=== PATIENT | female | born 1980 | race Caucasian/White ===

== ENCOUNTER 2021-01-14 19:58 | Emergency (ER) | payer SELFPAY ==
[~2021-01-14] VITALS: Ht 165.1 cm; Wt 63.5 kg
[2021-01-14 20:01] VITALS: BP 149/89
--- NOTE | 2021-01-14 20:08 | NUR ---
PT AMBULATED TO BED 05.
--- NOTE | 2021-01-14 20:22 | NUR ---
CT AT BEDSIDE.
--- NOTE | 2021-01-14 20:31 | NUR ---
PT BROUGHT BACK FROM CT VIA W/C.
[2021-01-14] MEDS ORDERED: ALTEPLASE 100 MG VIAL IV ONE (21:20)
--- NOTE | 2021-01-14 21:46 | NUR ---
Meli barksdale in ED - 01/14/21 at 2231 by [email or web address] RAD AT BEDSIDE.
--- NOTE | 2021-01-14 21:47 | NUR ---
LICHA AT [facility].
[2021-01-14 22:08] LABS: BASOPHILS % (AUTO) 0.5 % (0.0-2.0); EOSINOPHILS # (AUTO) 0.1 K/uL (0-0.4); HEMATOCRIT 28.9 % (36-48); HEMOGLOBIN 8.9 g/dL (12.0-16.0); LYMPHOCYTES # (AUTO) 1.7 K/uL (2.5-16.5); LYMPHOCYTES % (AUTO) 26.7 % (20.5-51.1); MEAN CORPUSCULAR HEMOGLOBIN 20 pg (27-31); MEAN CORPUSCULAR HGB CONC 31 g/dL (33-37); MEAN CORPUSCULAR VOLUME 64.8 fL (80-94); MONOCYTES # (AUTO) 0.5 K/uL (0.8-1.0); NEUTROPHILS # (AUTO) 4.1 K/uL (1.8-7.7); NEUTROPHILS % (AUTO) 63.8 % (42.2-75.2); PLATELET COUNT (AUTO) 240 K/uL (140-450); RED BLOOD CELL COUNT(AUTO) 4.47 MIL/uL (4.20-5.40); RED CELL DISTRIBUTION WIDTH 19.9 % (11.6-13.7); WHITE BLOOD COUNT (AUTO) 6.4 K/uL (4.8-10.8)
--- NOTE | 2021-01-14 22:28 | NUR ---
Patient appears to be resting comfortably in bed. Vital Signs within normal limits. Respirations even and unlabored. BOTH BED RAILS UP AND BED AT LOWEST POSITION.
--- NOTE | 2021-01-14 22:30 | NUR ---
MATEUS COLLECTED AND SENT TO LAB.
[2021-01-14 22:31] LABS: ALBUMIN 2.9 g/dL (3.4-5.0); ANION GAP 12.9 (8-16); CREATININE 0.6 mg/dL (0.6-1.3); POTASSIUM 3.9 mmol/L (3.5-5.1); TOTAL BILIRUBIN 0.2 mg/dL (0.0-1.0)
[2021-01-14 22:32] LABS: PROTHROMBIN TIME 9.3 secs (10.8-13.4)
--- NOTE | 2021-01-14 22:48 | NUR ---
[facility] ARRIVED FOR TRANSPORTATION.
[2021-01-14 22:55] VITALS: BP 116/72
--- NOTE | 2021-01-14 23:03 | NUR ---
[facility] LEAVING WITH PT AT THIS TIME.
--- NOTE | 2021-01-14 23:17 | NUR ---
Patient to be transferred to [facility]. Is being transferred due to HIGHER LEVEL OF CARE. Receiving facility has accepting physician and available space. ER physician has signed transfer form. Patient or responsible democrat has agreed to transfer and signed form. Patient belongings inventoried and will be sent with patient. Copy of nursing notes, lab reports, EKG, Physicians Orders and X-rays to be sent with patient. Report called to CHRISSIE at receiving facility. [facility] ambulance service has been called for transfer. ETA is 10 MIN .
--- NOTE | 2021-01-14 23:34 | NUR ---
The patient's care was reviewed and supervised by SHER ROD RN.
== END 2021-01-14 23:03 | disposition short-term general hospital (02) ==
LOC: MED 19:58
DX: I63.9 Cerebral infarction, unspecified (principal); Z20.822 Contact with and (suspected) exposure to COVID-19; Z98.890 Other specified postprocedural states
CPT/HCPCS: 36415; 70450; 71045; 80053; 84484; 85025; 85610; 85730; 86886; 86900; 86901; 87426; 93005; 96365; 99291; Q0092; J2997